=== PATIENT | female | born 1945 | race Caucasian/White ===

== ENCOUNTER → 2017-09-01 | Outpatient (CLI) | payer MEDICARE | END | disposition home or self-care (01) | LOC: CFH 14:54 | PROVIDERS: ATTEND Nurse Practitioner Primary Care | DX: Z13.220 Encounter for screening for lipoid disorders (principal); Z12.11 Encounter for screening for malignant neoplasm of colon; Z12.4 Encounter for screening for malignant neoplasm of cervix; J45.909 Unspecified asthma, uncomplicated; R53.83 Other fatigue; J30.9 Allergic rhinitis, unspecified; E11.9 Type 2 diabetes mellitus without complications; G93.9 Disorder of brain, unspecified; I10 Essential (primary) hypertension; K21.9 Gastro-esophageal reflux disease without esophagitis; E55.9 Vitamin D deficiency, unspecified; K76.89 Other specified diseases of liver; E83.51 Hypocalcemia; R22.2 Localized swelling, mass and lump, trunk; M85.9 Disorder of bone density and structure, unspecified; M54.42 Lumbago with sciatica, left side; Z78.9 Other specified health status | CPT/HCPCS: 71020 ==

== ENCOUNTER → 2018-01-25 | Outpatient (CLI) | payer MEDICARE | END | disposition home or self-care (01) | LOC: CFH 15:03 | PROVIDERS: ATTEND Nurse Practitioner Primary Care | DX: M25.561 Pain in right knee (principal); M25.521 Pain in right elbow; R53.83 Other fatigue; E11.9 Type 2 diabetes mellitus without complications; E55.9 Vitamin D deficiency, unspecified; R01.1 Cardiac murmur, unspecified; M54.9 Dorsalgia, unspecified; M54.32 Sciatica, left side; J30.9 Allergic rhinitis, unspecified; G93.9 Disorder of brain, unspecified; K21.9 Gastro-esophageal reflux disease without esophagitis; K76.89 Other specified diseases of liver; E83.51 Hypocalcemia; R22.2 Localized swelling, mass and lump, trunk; J45.909 Unspecified asthma, uncomplicated; M85.9 Disorder of bone density and structure, unspecified; Z78.9 Other specified health status; Z79.899 Other long term (current) drug therapy ==

== ENCOUNTER → 2018-05-04 | Outpatient (CLI) | payer MEDICARE | END | disposition home or self-care (01) | LOC: CFH 15:12 | PROVIDERS: ATTEND Nurse Practitioner Primary Care | DX: M19.011 Primary osteoarthritis, right shoulder (principal) ==

== ENCOUNTER 2019-11-09 10:05 | Outpatient (CLI) | payer MEDICARE | END 2019-11-09 23:59 | disposition home or self-care (01) | LOC: CFH 10:05 | PROVIDERS: ATTEND Nurse Practitioner Primary Care | DX: Z12.31 Encounter for screening mammogram for malignant neoplasm of breast (principal); M85.88 Other specified disorders of bone density and structure, other site; Z78.0 Asymptomatic menopausal state | CPT/HCPCS: 77080; 77067 ==